=== PATIENT | female | born 1945 | race Caucasian/White ===

== ENCOUNTER → 2018-01-11 | Outpatient (CLI) | payer MEDICARE, OTHER ==
[~2018-01-11] MED LIST: CLOB.05TC TOP; DIGESTIVE ENZY1 EACH PO; EPIN.3I IM; ERGO400 PO; ERYT250 PO; ESTNOR; ESTRIOL TOP; HYDR1TAB94 PO; KRILL OIL 1,001 EAC1 PO; MAGNESIUM MALATE PO; NAPR220 PO; NATURAL THYROID PO; PROG100 PO; THYR60 PO; TUMERIC PO; UBIQUINOL100 MG PO; VITAMIN K2 PO; WOBENZYME PO; ZINC15 PO; [UNRECOGNIZED DRUG - MIXTURE] PO; [UNRECOGNIZED DRUG - OTHER] PO; [UNRECOGNIZED DRUG - OTHER] PO; [UNRECOGNIZED DRUG - OTHER] PO; [UNRECOGNIZED DRUG - REMARK] PO
== END ==
LOC: LAB SHORT 08:28 → PLD 08:28
DX: D22.72 Melanocytic nevi of left lower limb, including hip (principal); C44.612 Basal cell carcinoma of skin of right upper limb, including shoulder
CPT/HCPCS: 88305

== ENCOUNTER → 2019-08-15 | Outpatient (CLI) | payer MEDICARE, OTHER | END | disposition home or self-care (01) | LOC: LAB SHORT 10:29 → PLD 10:29 | DX: D18.01 Hemangioma of skin and subcutaneous tissue (principal) | CPT/HCPCS: 88305 ==

== ENCOUNTER → 2025-06-20 | Outpatient (CLI) | payer MEDICARE, OTHER ==
[2025-06-21 00:18] LABS: Thyroid Stimulating Hormone 0.409 uIU/mL (0.360-4.800)
== END ==
LOC: LAB 17:22 → LAB SHORT 17:22
PROVIDERS: Internal Medicine
DX: E03.9 Hypothyroidism, unspecified (principal)
CPT/HCPCS: 84439; 84443; 84481

== ENCOUNTER → 2025-08-14 | Outpatient (CLI) | payer MEDICARE, OTHER ==
[2025-08-14 21:21] LABS: Thyroid Stimulating Hormone 0.654 uIU/mL (0.360-4.800)
== END ==
LOC: LAB 17:38 → LAB SHORT 17:38
PROVIDERS: Internal Medicine
DX: E03.9 Hypothyroidism, unspecified (principal)
CPT/HCPCS: 84439; 84443; 84481